=== PATIENT | male | born 1995 | race Asian ===

== ENCOUNTER 2017-08-16 12:02 | Emergency (ER) | payer OTHER ==
[2017-08-16 12:09] VITALS: TEMP 36.8
--- NOTE | 2017-08-16 12:43 | EMERGENCY ROOM VISIT NOTE ---
History Report prepared by Zeeshan: Bryson Darnell Under the Supervision of: Dr. Analia Guidry D.O. First contact with patient: 12:18 Chief Complaint: MENTAL HEALTH EVALUATION Stated Complaint: MENTAL HEALTH EVALUATION History of Present Illness The patient is a 21 year old male who presents to the Emergency Room with complaints of worsening inability to sleep for the past 2 months which is worsened with stress. The patient notes that he was seen at a psych clinic this morning, and they told him to come to the ED for evaluation due to his lack of sleep. He notes that this was the first time that he saw his psychologist in a few weeks. He notes that he has not been put on medications at his doctor, though they said he might have to be put on one. The patient reports that he tries to go to bed around 2300 at night, though recently he has not been able to fall asleep until around 0300. He notes that once he is asleep he is able to stay asleep for around 6-8 hours depending on when he has to get up. The patient states that he has had trouble sleeping in the past though he did not do anything about it in the past. He reports that he also has been more anxious , nervous, unable to concentrate, his "mind goes blank easily", and he feels like he is more easily depressed. He denies any thoughts of hurting himself, hurting others, visual or auditory hallucinations, and he does not feel like anyone is following him. He denies and other medication use, alcohol use, cigarettes use, drug use, and any caffeine use other than occasional tea. The patient notes that his mother also has some sleep problems. The patient reports that he has not been able to go to class recently. Source of History: patient [facility] Position: other (global) Quality: other (inability to sleep) Timing: worsening Note: Associated symptoms: more anxious, nervous, unable to concentrate, his "mind goes blank easily", and he feels like he is more easily depressed Review of Systems See HPI for pertinent positives & negatives. A total of 10 systems reviewed and were otherwise negative. Family History Insomnia Social History Marital Status: single Occupation Status: [employer] student Physical Exam Vital Signs Date Time Temp Pulse Resp B/P (MAP) Pulse Ox O2 Delivery O2 Flow Rate FiO2 08/16/17 13:18 98 18 148/88 98 3/15/18 12:09 36.8 98 18 148/88 98 Room Air Physical Exam GENERAL: alert, well appearing, well nourished, no distress, non-toxic EYE EXAM: normal conjunctiva, PERRL and EOM's grossly intact OROPHARYNX: no exudate, no erythema, lips, buccal mucosa, and tongue normal and mucous membranes are moist NECK: supple, no nuchal rigidity, no adenopathy, non-tender LUNGS: Clear to auscultation. Normal chest wall mechanics HEART: no murmurs, S1 normal and S2 normal ABDOMEN: abdomen soft, non-tender, normo-active bowel sounds, no masses, no rebound or guarding. BACK: Back is symmetrical on inspection and there is no deformity, no midline tenderness, no CVA tenderness. SKIN: no rashes and no bruising UPPER EXTREMITIES: upper extremities are grossly normal. LOWER EXTREMITIES: No pitting edema. NEURO EXAM: Normal sensorium, cranial nerves II-XII grossly intact, normal speech, no gross weakness of arms, no gross weakness of legs. PSYCH: No SI, no HI, no paranoia, no auditory or visual hallucinations. Medical Decision & Procedures ED Course 1218: The patient was evaluated in room A6. A complete history and physical exam was performed. I discussed the discharge instructions with the patient, and he was agreeable. He will be discharged home. Medical Decision Differential diagnosis: Etiologies such as mood disorder, infection, hypoglycemia, electrolyte abnormalities, cardiac sources, intracerebral event, toxicologic, neurologic, as well as others were entertained. Patient well-appearing here despite complaints. Discussed sleep hygiene patterns, discussed [id number] sleep medications. Discussed continue follow-up with his psychotherapist as well as possible need for additional evaluation by his family doctor or psychiatrist guarding prescription at occasions. Discussed symptoms to watch and return for, he verbalized understanding was agreeable with plan. I do not feel patient is an imminent risk to himself or anyone else, denies SI/HI at this time. Patient, cooperative well-appearing here, vital signs otherwise stable. Doubt additional underlying pathology including infection, electrolyte abnormalities, occult trauma, or other intracranial pathology. Patient with increased stress regarding school now complicated by difficulty sleeping which is leading to additional anxiety. Patient verbalized understanding of discussion, and all questions answered at bedside. Medication Reconcilliation Current Medication List: was personally reviewed by me Blood Pressure Screening Patient's blood pressure: Elevated blood pressure Blood pressure disposition: Elevated BP felt to be situational Impression Primary Impression: Sleep difficulties Additional Impression: Anxiety Scribe Attestation The scribe's documentation has been prepared under my direction and personally reviewed by me in its entirety. I confirm that the note above accurately reflects all work, treatment, procedures, and medical decision making performed by me. Departure Information Dispostion Home / Self-Care Referrals No Doctor, Assigned (PCP) Forms HOME CARE DOCUMENTATION FORM, IMPORTANT VISIT INFORMATION Patient Instructions My [facility] Additional Instructions You may try an over the counter sleep aid such as melatonin or valerian root. Please take as directed on the bottle. Please avoid caffeine containing drinks later in the afternoon or evening. Please make sure you are well hydrated and avoid eating just before bedtime. Please try to exercise regularly. Please establish a sleep routine and consistent bedtime. If you are continuing to have difficulties sleeping you may need to see your doctor about a prescription sleep medication. If you have any worsening stress or anxiety, feel more sad, begin to have thoughts of wanting to hurt yourself or someone else, or have any other new or concerning symptoms, please return to the emergency room. Problem Qualifiers
[2017-08-16 13:18] VITALS: BP 148/88; PULSE 98; O2SAT 98
== END 2017-08-16 13:19 | disposition home or self-care (01) ==
LOC: C.EDB 12:04 → C.EDA 13:19
DX: G47.9 Sleep disorder, unspecified (principal); F41.9 Anxiety disorder, unspecified